=== PATIENT | male | born 1950 | race Caucasian/White ===

== ENCOUNTER 2016-06-03 12:32 | Day surgery (SDC) | payer OTHER ==
[2016-06-03] MEDS ORDERED: LR 1,000 ML IV ONE (13:10)
[2016-06-03] MEDS ORDERED: LIDOCAINE 1% 5 ML SDV ID PRN (13:10)
--- NOTE | 2016-06-03 13:18 | CPEKG ---
Heart Rate: 66 RR Interval: 909 P-R Interval: 152 QRSD Interval: 98 QT Interval: 408 QTC Interval: 428 P Julian: 10 QRS Julian: 92 T Wave Julian: 5 EKG Severity - OTHERWISE NORMAL ECG - EKG Impression: SINUS RHYTHM EKG Impression: RIGHT AXIS DEVIATION Electronically Signed By: Marcos Pat 04-Jun-2016 17:24:21
[2016-06-03] MEDS ORDERED: MIDAZOLAM 2 MG/2 ML VIAL ONE (14:02)
[2016-06-03] MEDS ORDERED: PROPOFOL/EMULSION 500 MG/50 ML BOTTLE IV ONE ×2 (14:03→14:42)
[2016-06-03] MEDS ORDERED: ONDANSETRON 4 MG/2 ML VIAL ONE (14:05)
[2016-06-03] MEDS ORDERED: DEXAMETHASONE 4 MG/ML VIAL ONE (14:05)
[2016-06-03] MEDS ORDERED: LIDOCAINE 2% 100 MG/5 ML SYR IVP ONE (14:05)
--- NOTE | 2016-06-04 11:47 | GPN ---
[f rep st] PROCEDURE NOTE DATE OF PROCEDURE: 06/03/2016 PROCEDURE: Colonoscopy with EMR, snare polypectomy, biopsy. INDICATION: Gregorio is a 65-year-old male who had a recent colonoscopy which showed an irregular erythematous polypoid mass in the sigmoid colon. Biopsies suggestive of a adenoma. He presents for further evaluation. CONSENT: Risks, benefits, and alternatives of the procedure were discussed in great detail with the patient. Risk of infection, bleeding, perforation, and sedation were discussed. All questions answered. Informed obtained. MEDICATIONS: Propofol. Please see anesthesia record for details. ESTIMATED BLOOD LOSS: Insignificant. COLONOSCOPIC EVALUATION: A rectal exam was performed and no palpable masses felt. The scope was introduced into the rectum and advanced to the cecum, where the ileocecal valve and appendiceal orifice were visualized. The quality of prep was good. In the transverse colon, a 4 mm sessile polyp was seen and removed by snare polypectomy. In the descending colon, a 5 mm sessile polyp was seen and was removed by snare polypectomy. In the sigmoid colon, a large polypoid lesion was seen of approximately 4 x 3 cm. It appeared that it was multiple polyps adjacent to each other. This area was injected with 5 cc of saline for submucosal lift in different quadrants and removed by snare polypectomy in a piecemeal fashion. A 2mm rectal polyp was seen and removed by excisional biopsy. Retroflexion was performed. IMPRESSION: 1. Sigmoid polypoid lesion- s/p EMR. 2. Transverse colon polyp- s/p snare polypectomy. 3. Descending colon polyp- s/p snare polypectomy. 4. Rectal polyp- s/p excisional biopsy. RECOMMENDATIONS: 1. Follow up on biopsy results. 2. Continue previous medications. 3. Advance diet. 4. Repeat colonoscopy dependent on pathology. /[id number]/MODL MTDD
== END 2016-06-03 16:00 | disposition home or self-care (01) ==
LOC: FSGY 12:32
PROVIDERS: ATTEND Internal Medicine Gastroenterology
DX: D12.3 Benign neoplasm of transverse colon (principal); D12.4 Benign neoplasm of descending colon; D12.5 Benign neoplasm of sigmoid colon; K62.1 Rectal polyp; E11.9 Type 2 diabetes mellitus without complications; J45.909 Unspecified asthma, uncomplicated; E66.01 Morbid (severe) obesity due to excess calories; G47.33 Obstructive sleep apnea (adult) (pediatric); Z80.3 Family history of malignant neoplasm of breast
CPT/HCPCS: J1100; J2001; J2250; J2405; J2704